=== PATIENT | female | born 1980 | race Caucasian/White ===

== ENCOUNTER 2019-03-18 20:38 | Emergency (ER) | payer BC, SELFPAY ==
--- NOTE | ~2019-03-18 | CT_ITS ---
EXAMINATION: CT abdomen pelvis w con DATE: 03/19/2019 00:54 INDICATION: Right lower quadrant abdominal pain. Nausea and diarrhea. TECHNIQUE: Computed tomography (CT) of the abdomen and pelvis was performed with 100 mL Omnipaque 350 intravenous contrast. Automated exposure control and iterative reconstruction technique were employe d. The dose-length product was 445.01 mGy-cm. COMPARISON: CT abdomen and pelvis 07/18/2017 FINDINGS: The visualized portions of the lung bases demonstrate mild atelectasis. No pleural effusion . The heart size is normal. No pericardial effusion. The liver, gallbladder, spleen, pancreas, adrena l glands, and kidneys are normal. There are no dilated loops of bowel. The appendix is normal. There are no pathologically enlarged lymph nodes. There is no free intraperitoneal fluid. The bones are unr emarkable. IMPRESSION: 1. No etiology for the patient's symptoms. Reviewed, dictated and finalized at location A. R PA[employer]ER
[2019-03-18 20:39] VITALS: BP 137/75; PULSE 103; RESP 16; TEMP 36.7; O2SAT 100
[2019-03-18 20:51] LABS: Basophils Absolute Auto 0.1 K/mm3 (0.0-0.1); Basophils Percent Auto 0.7 % (0.2-1.2); Eosinophils Absolute Auto 0.2 K/mm3 (0-0.3); Hematocrit 43.2 % (37.0-47.0); Hemoglobin 14.8 g/dL (12.0-15.0); Immature Granulocyte Absolute 0.02 K/mm3 (0.00-0.031); Immature Granulocyte Percent A 0.2 % (0-0.5); Lymphocytes Percent Auto 42.4 % (18.3-44.2); Mean Corpuscular HGB Conc 34.3 g/dl (32-36); Mean Corpuscular Hemoglobin 30.2 pg (26-34); Mean Corpuscular Volume 88.2 fl (80-100); Mean Platelet Volume 9.2 fl (7.4-10.4); Monocytes Absolute Auto 0.7 K/mm3 (0.1-0.6); Monocytes Percent Auto 6.4 % (2.6-8.5); Neutrophils Absolute Auto 4.9 K/mm3 (1.3-6.7); Neutrophils Percent Auto 48.3 % (45.5-73.1); Platelet Count Result 254 k/mm3 (150-375); Red Cell Distribution Width 12.3 % (11.5-14.5); White Blood Count 10.1 K/mm3 (4.5-10.0)
[2019-03-18 21:03] LABS: Blood Urea Nitrogen 16 mg/dL (7-17); Calcium 9.4 mg/dL (8.4-10.2); Carbon Dioxide 23 mmol/L (22-30); Chloride 102 mmol/L (98-107); Estimated Glomerular Filt Rate > 60; Glucose 116 mg/dL (65-105); Potassium 3.7 mmol/L (3.4-5.0); Sodium 137 mmol/L (137-145)
[2019-03-18 22:09] LABS: Add Urine Microscopic? YES; Appearance Urine Clear (Clear); Bacteria Urine Trace /hpf; Bilirubin Urine Negative (Negative); Blood Urine 1+ (Negative); Color Urine Yellow (Yellow); Glucose Urine UA Negative (Negative); Ketones Urine Negative (Negative); Leukocyte Esterase Ur Negative LEU/UL (Negative); Mucus Urine Rare /lpf; Nitrate Urine Negative (Negative); Protein Urine Negative (Negative); Specific Grav Ur 1.017 (1.001-1.035); Squamous Epithelial Cell Urine Many /hpf (Few); WBC Urine 0-3 /hpf
--- NOTE | 2019-03-18 23:17 | ED.ABDPAIN ---
HPI - Abdominal Pain General Chief Complaint: Abdominal Pain Stated Complaint: rlq pain Time Seen by Provider: 03/18/19 23:14 Source: patient and RN notes reviewed Mode of arrival: ambulatory Limitations: no limitations History of Present Illness HPI narrative: Pt is a 38 y/o female who presents to the ED with c/o worsening rt sided ABD pain starting 3-4 days ago. She notes that her pain is aggravated with eating and certain movements. Pt states that her pain radiates into her bilateral groin when it becomes aggravated. She notes that she recently got off of her period. Pt currently denies any vomiting, fever, or chills. She denies any Hx of appendectomy or cholecystectomy. MD elicited complaint: abdominal pain Onset (ago): day(s) (3-4) Pain Consistency: other (worsening) Location: other (rt side of ABD) Radiation: other (bilateral groin) Exacerbating factors: eating and movement Associated symptoms: denies other symptoms Related Data Allergies Allergy/AdvReac Type Severity Reaction Status Date / Time codeine Allergy Mild Rash Verified 03/18/19 23:53 Penicillins Allergy Unknown Rash Verified 08/14/18 17:48 Review of Systems Review of Systems: All systems reviewed & are unremarkable except as noted in HPI and below Constitutional: Constitutional: Denies chills and Denies fever(s) Gastrointestinal: Gastrointestinal: Reports abdominal pain (rt sided ABD pain radiating into bilateral groin) and Denies vomiting PMFSH Past Medical History Medical History Perthes disease Surgical History Surgical History History of hip surgery lt hip Social History Social History Smoking packs per day: 1 Smoking cigarettes per day: 20.0 Smoking status: Current every day smoker Comments PCP is JUANA Fairchild. Exam Narrative: Exam Narrative: General appearance: Well-developed, well-nourished, no family member at the bedside Skin: Normal color Head: Normocephalic, nontraumatic Eyes: Clear conjunctiva ENT: Oropharynx normal, ears normal, nose normal Neck: Supple, nontender Chest and respiratory: Airway patent, no respiratory distress, no accessory muscle use Heart: Regular rate/rhythm Abdomen: Soft, diffuse tenderness right upper quadrant, no organomegaly, quiet bowel sounds Vascular: Normal peripheral pulses, normal capillary refill. 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 Labs, CT abdomen and pelvis with IV contrast ordered. IV fluids, IV Dilaudid, IV Zofran ordered. Further plan to follow Differential Diagnosis Differential diagnosis: Likely abdominal pain, constipation, diverticulitis and other (Cholecystitis cholelithiasis) Lab Data Result diagrams: 03/18/19 20:45 03/18/19 20:45 Labs: Lab Results 03/18/19 03/18/19 03/18/19 Range/Units 20:45 20:45 21:49
[2019-03-18] MEDS: SODIUM CHLORIDE 0.9% IV 1,000 ML 999 ML IV CONT (23:48)
[2019-03-18] MEDS: MORPHINE SULFATE 4 MG/ML INJ IV PUSH (23:51)
[2019-03-18] MEDS: ONDANSETRON INJ 4 MG/2 ML VIAL IV PUSH (23:51)
[2019-03-19 02:01] VITALS: BP 128/72; PULSE 72; RESP 16; TEMP 36.5; O2SAT 99
== END 2019-03-19 02:10 | disposition home or self-care (01) ==
PROVIDERS: Emergency Medicine; Emergency Provider Emergency Medicine; PCP Nurse Practitioner Family
DX: R10.11 Right upper quadrant pain (principal); F17.210 Nicotine dependence, cigarettes, uncomplicated
CPT/HCPCS: 36415; 74177; 80048; 81001; 81025; 85025; 96361; 96374; 96375; 99284; J2270; J2405; J7030; Q9967

== ENCOUNTER 2019-04-02 17:34 | Emergency (ER) | payer BC, SELFPAY ==
--- NOTE | 2019-04-02 17:36 | ED.URI ---
HPI - URI/Sore Throat General Chief Complaint: Upper Respiratory Infection Stated Complaint: Cough Time Seen by Provider: 04/02/19 17:36 Source: patient and RN notes reviewed History of Present Illness HPI Narrative: Patient is a 38-year-old female presents the urgent care with complaints of a nonproductive cough, headache, chills, sweats. Patient states that started today and she has been exposed to both flu and strep. Patient has been using ibuprofen but otherwise nothing else [id number] for her symptoms. No other acute complaints. No acute distress noted. Patient read the plan of care. Related Data Home Medications Medication Instructions Recorded Confirmed escitalopram oxalate [Lexapro] 10 mg PO DAILY 04/02/19 04/02/19 Allergies Allergy/AdvReac Type Severity Reaction Status Date / Time codeine Allergy Mild Rash Verified 04/02/19 17:54 Penicillins Allergy Unknown Rash Verified 04/02/19 17:54 Review of Systems Review of Systems: Narrative: CONSTITUTIONAL: Reports of chills and sweats EYES: Denies visual changes, redness, or discharge. ENT: Denies rhinorrhea, congestion, sore throat, or otalgia. CARDIOVASCULAR: Denies chest pain, palpitations, or edema. RESPIRATORY: Reports of nonproductive cough without dyspnea GASTROINTESTINAL: Denies abdominal pain, nausea, vomiting, or diarrhea. GENITOURINARY: Denies dysuria or hematuria. SKIN: Denies rash or itching. MUSCULOSKELETAL: Denies back pain, joint pain, or myalgia. NEUROLOGIC: Reports of headache All other systems reviewed are negative, except as documented in HPI. PMFSH Social History Social History Smoking packs per day: 1 Smoking cigarettes per day: 20.0 Smoking status: Current every day smoker Gender identity (if verbalized by the patient): Female Comments At the time of my signature, I reviewed and agree with the nursing past medical, surgical, social, and family history. There is no relevant family history pertinent to the patient complaint. Exam Narrative: Exam Narrative: GENERAL: This is a well-nourished, well-developed patient, appears slightly fatigued HEAD: normocephalic, atraumatic. EYES: PERRL. Sclera clear/white. Vision is grossly intact. EARS: External ears normal, auditory canals clear and without drainage, TMs normal without perforation. Hearing grossly intact. NOSE: External nose normal with no obvious nasal discharge, nares without redness, no rhinorrhea. THROAT: Mucous membranes moist, posterior pharynx clear. Moderate postnasal drainage NECK: Neck supple, non-tender without lymphadenopathy CARDIOVASCULAR: Regular rate and rhythm without murmurs, gallops, or rubs. RESPIRATORY: Clear to auscultation. Breath sounds equal bilaterally. No wheezes, rales, or rhonchi. SKIN: warm, intact with no suspicious lesions or rash, good texture and turgor. NEURO: awake, alert, and oriented to person, place and time. There were no obvious focal neurologic abnormalities. EXTREMITIES: No clubbing, cyanosis, or edema. Course Vital Signs Vital signs: Vital Signs Temperature 98.6 F 04/02/19 17:44 Pulse Rate 77 04/02/19 17:44 Respiratory Rate 16 04/02/19 17:44 Blood Pressure 122/69 04/02/19 17:44 Pulse Oximetry 100 04/02/19 17:44 Temperature 98.6 F 04/02/19 17:44 Pulse Rate 77 04/02/19 17:44 Respiratory Rate 16 04/02/19 17:44 Blood Pressure 122/69 04/02/19 17:44 Pulse Oximetry 100 04/02/19 17:44 Reviewed MDM - URI/Sore Throat MDM Narrative Medical decision making narrative: Reviewed lab results with the patient. She is aware that strep swab was negative. Educated patient on culture we will call within 72 hours if culture is positive and antibiotics are necessary. Patient is also aware that her influenza swab that was negative for flu. Advised the patient to treat symptoms with [id number] medication such as Flonase and Claritin for postnasal drainage. U
[2019-04-02 17:44] VITALS: BP 122/69; PULSE 77; RESP 16; TEMP 37; O2SAT 100
== END 2019-04-02 18:12 | disposition home or self-care (01) ==
PROVIDERS: Emergency Provider Nurse Practitioner Family; PCP Nurse Practitioner Family
DX: B34.9 Viral infection, unspecified (principal); F17.200 Nicotine dependence, unspecified, uncomplicated
CPT/HCPCS: 87081; 87804; 87880; 99213; G0463

== ENCOUNTER 2020-02-21 20:46 | Emergency (ER) | payer BC, MEDICAID, SELFPAY ==
[2020-02-21 20:48] VITALS: BP 160/83; PULSE 89; RESP 17; TEMP 37; O2SAT 97
--- NOTE | 2020-02-21 21:26 | ED.GENADULT ---
HPI - General Adult General Chief complaint: GI Bleed Stated complaint: abd pain, black stools Time Seen by Provider: 02/21/20 20:54 Source: RN notes reviewed History of Present Illness HPI narrative: Patient presents emergency department from home for possible GI bleed. Patient states she is been having approximate 1-2 black stools a day since . She states she called her PCP today and was instructed to come to the ED for further evaluation she notes that with the symptoms she is having nausea as well as intermittent epigastric abdominal pain she also notes generalized fatigue as well as intermittent dizziness she denies any fevers or chills chest pain shortness of breath vomiting diarrhea or any other symptoms Related Data Home Medications Medication Instructions Recorded Confirmed norethindrone (contraceptive) mg 02/21/20 sertraline mg 02/21/20 Allergies Allergy/AdvReac Type Severity Reaction Status Date / Time codeine Allergy Mild Rash Verified 02/21/20 20:51 Penicillins Allergy Unknown Rash Verified 02/21/20 20:51 Review of Systems Review of Systems: Narrative: Gen.: Denies fevers or chills ENT: Denies congestion Respiratory: Denies shortness of breath or cough CV: Denies chest pain or palpitations GI: See HPI denies burning, urgency, frequency or hematuria Musculoskeletal: Denies back pain or muscle pain Neuro: Denies numbness, tingling, weakness or focal weakness reports intermittent dizziness Skin: Denies rash Except as documented, all other systems reviewed and negative [facility] Past Medical History Medical History (Updated 02/21/20 @ 23:18 by Dexter Mckay DO) Perthes disease Surgical History Surgical History History of hip surgery lt hip Social History Social History Smoking packs per day: 1 Smoking cigarettes per day: 20.0 Smoking status: Current every day smoker Gender identity (if verbalized by the patient): Female Exam Narrative: Exam Narrative: APPEARANCE: No acute distress, nontoxic, resting in bed EYES: EOMI HEENT: Normocephalic, atraumatic, OMM RESPIRATORY: No respiratory distress Clear to auscultation bilaterally with no rhonchi wheezing or rales. CARDIOVASCULAR: Regular rate and rhythm without murmurs rubs or gallops. ABDOMINAL: Soft, nontender, nondistended, no rebound or guarding Rectal: No hemorrhoids or fissures, small amount of soft dark brown stool that is Hemoccult negative MUSCULOSKELETAl: Moves all extremities. No clubbing, cyanosis or edema. NEURO: Awake and alert. Following commands, speech normal, no focal deficits SKIN:: Warm, dry. No rashes lesions or abrasions PSYCHIATRIC: Normal affect/mood, Course Course Emergency Course: Patient notes no complaints in ED. Repeat abdominal exam soft and nontender discussed with patient results of workup and diagnosis. Discussed need for follow-up with primary care, proper use of medication, and reasons to return to the emergency department. Patient understands and agrees to current treatment plan discussed follow-up with GI need for possible EGD Vital Signs Vital signs: Vital Signs Temperature 98.6 F 02/21/20 20:48 Pulse Rate 89 02/21/20 20:48 Respiratory Rate 17 02/21/20 20:48 Blood Pressure 160/83 H 02/21/20 20:48 Pulse Oximetry 97 02/21/20 20:48 Temperature 98.6 F 02/21/20 20:48 Pulse Rate 68 02/21/20 22:30 Respiratory Rate 16 02/21/20 22:30 Blood Pressure 133/78 02/21/20 22:30 Pulse Oximetry 98 02/21/20 22:30 Medical Decision Making MDM Narrative Medical decision making narrative: Patient presents for dark stools. Hemoccult negative in ED. Hemoglobin is stable and patient has had normal orthostatics. She has had intermittent epigastric pain I do suspect a possible ulcer. At this time I do feel the patient is safe for discharge her abdomen is currently
[2020-02-21 21:35] LABS: Basophils Absolute Auto 0.1 K/mm3 (0.0-0.1); Basophils Percent Auto 0.7 % (0.2-1.2); Eosinophils Absolute Auto 0.2 K/mm3 (0-0.3); Eosinophils Percent Auto 1.8 % (0-4.4); Hematocrit 45.2 % (37.0-47.0); Hemoglobin 15.8 g/dL (12.0-15.0); Immature Granulocyte Absolute 0.05 K/mm3 (0.00-0.031); Immature Granulocyte Percent A 0.5 % (0-0.5); Lymphocytes Absolute Auto 3.86 K/mm3 (0.9-3.2); Lymphocytes Percent Auto 35.6 % (18.3-44.2); Mean Corpuscular Hemoglobin 30.7 pg (26-34); Mean Corpuscular Volume 87.9 fl (80-100); Mean Platelet Volume 8.6 fl (7.4-10.4); Monocytes Absolute Auto 0.8 K/mm3 (0.1-0.6); Monocytes Percent Auto 7.4 % (2.6-8.5); Neutrophils Absolute Auto 5.8 K/mm3 (1.3-6.7); Platelet Count Result 268 k/mm3 (150-375); Red Blood Count 5.14 M/mm3 (4.2-5.4); Red Cell Distribution Width 12.6 % (11.5-14.5); White Blood Count 10.8 K/mm3 (4.5-10.0)
[2020-02-21 21:46] LABS: Partial Thromboplastin Time 26.8 SECONDS (22.3-36.8); Prothrombin Time 13.8 Seconds (11.1-14.7)
[2020-02-21 21:48] LABS: Alanine Aminotransferase 26 U/L (4-35); Albumin Level 4.2 g/dL (3.5-5.1); Alkaline Phosphatase 85 U/L (38-126); Anion Gap 7 mmol/L (8-16); Aspartate Amino Transferase 22 U/L (14-36); Bilirubin,Total 0.8 mg/dL (0.2-1.3); Blood Urea Nitrogen 12 mg/dL (7-17); Calcium 8.7 mg/dL (8.4-10.2); Carbon Dioxide 22 mmol/L (22-30); Chloride 107 mmol/L (98-107); Estimated Glomerular Filt Rate > 60; Glucose 89 mg/dL (65-105); Potassium 3.9 mmol/L (3.4-5.0); Sodium 136 mmol/L (137-145)
[2020-02-21 21:50] LABS: Add Urine Microscopic? YES; Appearance Urine Clear (Clear); Bacteria Urine Trace /hpf; Bilirubin Urine Negative (Negative); Blood Urine 2+ (Negative); Color Urine Straw (Yellow); Glucose Urine UA Negative (Negative); Ketones Urine Negative (Negative); Leukocyte Esterase Ur Trace LEU/UL (Negative); Nitrate Urine Negative (Negative); Protein Urine Negative (Negative); RBC Urine 0-2 /hpf (0-2); Specific Grav Ur 1.006 (1.001-1.035); Squamous Epithelial Cell Urine Many /hpf (Few); Urobilinogen Urine Negative mg/dL (<2.0); WBC Urine 0-3 /hpf
[2020-02-21 22:01] VITALS: BP 120/82; BP 133/78; BP 134/79; PULSE 62; PULSE 67; PULSE 74
[2020-02-21] MEDS: ONDANSETRON INJ 4 MG/2 ML VIAL IV PUSH (22:05)
[2020-02-21] MEDS: SODIUM CHLORIDE 0.9% IV 1,000 ML 999 ML IV CONT (22:06)
[2020-02-21] MEDS: PANTOPRAZOLE SODIUM IV 40 MG VIAL IV PUSH (22:06)
[2020-02-21 22:30] VITALS: BP 133/78; PULSE 68; RESP 16; O2SAT 98
[2020-02-21 23:50] VITALS: BP 139/78; PULSE 72; RESP 16; TEMP 36.3; O2SAT 95
== END 2020-02-21 23:54 | disposition home or self-care (01) ==
PROVIDERS: Emergency Provider Emergency Medicine; PCP Nurse Practitioner Family
DX: R10.13 Epigastric pain (principal); F17.210 Nicotine dependence, cigarettes, uncomplicated
CPT/HCPCS: 36415; 80053; 81001; 81025; 85025; 85610; 85730; 86850; 86900; 86901; 96361; 96374; 96375; 99284; C9113; J2405; J7030

== ENCOUNTER 2020-05-12 17:50 | Emergency (ER) | payer BC, MEDICAID, SELFPAY ==
--- NOTE | 2020-05-12 17:52 | ED.DENTAL ---
HPI - Dental/Oral General Chief complaint: Dental/Oral Stated complaint: Pain on tongue Time Seen by Provider: 05/12/20 17:52 Source: patient and RN notes reviewed History of Present Illness HPI Narrative: Patient is a 39-year-old female who presents the urgent care with complaints of possible thrush and painful tongue. Patient states she noticed it about a week ago and has been increasing her water intake and changing her toothbrushes. Patient states it seems to have gotten worse and feels like she is eating scolding hot foods or drinking scolding hot coffee every time she eats or drinks. Patient also reports of bilateral itchy ears . Call patient denies any other acute complaints. No acute distress noted. Patient aware of the plan of care. Some parts of this dictation were generated by voice recognition software and may contain typographical and/or grammatical inaccuracies. Related Data Home Medications Medication Instructions Recorded Confirmed norethindrone (contraceptive) mg 02/21/20 sertraline mg 02/21/20 Allergies Allergy/AdvReac Type Severity Reaction Status Date / Time codeine Allergy Mild Rash Verified 02/21/20 20:51 Penicillins Allergy Unknown Rash Verified 02/21/20 20:51 Review of Systems Review of Systems: Narrative: CONSTITUTIONAL: Denies fever, chills, or sweats. EYES: Denies visual changes, redness, or discharge. ENT: Denies rhinorrhea, congestion, sore throat. Reports of bilateral itchy ears and sore tongue CARDIOVASCULAR: Denies chest pain, palpitations, or edema. RESPIRATORY: Denies cough or dyspnea. GASTROINTESTINAL: Denies abdominal pain, nausea, vomiting, or diarrhea. GENITOURINARY: Denies dysuria or hematuria. SKIN: Denies rash or itching. MUSCULOSKELETAL: Denies back pain, joint pain, or myalgia. NEUROLOGIC: Denies headache, numbness, or weakness. All other systems reviewed are negative, except as documented in HPI. [facility] Past Medical History Medical History (Updated 05/12/20 @ 18:40 by KELLY Brown) Perthes disease Surgical History Surgical History History of hip surgery lt hip Social History Social History Smoking packs per day: 1 Smoking cigarettes per day: 20.0 Smoking status: Current every day smoker Gender identity (if verbalized by the patient): Female Comments At the time of my signature, I reviewed and agree with the nursing past medical, surgical, social, and family history. There is no relevant family history pertinent to the patient complaint. Exam Narrative: Exam Narrative: GENERAL: This is a well-nourished, well-developed patient, in no apparent distress. HEAD: normocephalic, atraumatic. EYES: PERRL. Sclera clear/white. Vision is grossly intact. EARS: External ears normal, auditory canals clear and without drainage, TMs normal without perforation. Hearing grossly intact. NOSE: External nose normal with no obvious nasal discharge, nares without redness, no rhinorrhea. THROAT: Mucous membranes moist, posterior pharynx clear. Coated white to yellow tongue with scattered raised blistering to the posterior tongue. NECK: Neck supple SKIN: warm, intact with no suspicious lesions or rash, good texture and turgor. NEURO: awake, alert, and oriented to person, place and time. There were no obvious focal neurologic abnormalities. EXTREMITIES: No clubbing, cyanosis, or edema. Course Vital Signs Vital signs: Vital Signs Temperature 97.7 F 05/12/20 18:06 Pulse Rate 83 05/12/20 18:06 Respiratory Rate 16 05/12/20 18:06 Blood Pressure 139/69 05/12/20 18:06 Pulse Oximetry 100 05/12/20 18:06 Temperature 97.7 F 05/12/20 18:06 Pulse Rate 83 05/12/20 18:06 Respiratory Rate 16 05/12/20 18:06 Blood Pressure 139/69 05/12/20 18:06 Pulse Oximetry 100 05/12/20 18:06 Reviewed MDM - Dental/Oral MDM Narrative Medical dec
[2020-05-12 18:06] VITALS: BP 139/69; PULSE 83; RESP 16; TEMP 36.5; O2SAT 100
== END 2020-05-12 18:42 | disposition home or self-care (01) ==
PROVIDERS: Emergency Provider Nurse Practitioner Family; PCP Nurse Practitioner Family
DX: B37.0 Candidal stomatitis (principal); F17.219 Nicotine dependence, cigarettes, with unspecified nicotine-induced disorders; M91.10 Juvenile osteochondrosis of head of femur [Legg-Calve-Perthes], unspecified leg
CPT/HCPCS: 99213; G0463

== ENCOUNTER 2020-05-16 12:38 | Emergency (ER) | payer BC, MEDICAID, SELFPAY ==
--- NOTE | 2020-05-16 12:49 | ED.UPPEXIN ---
HPI - Extremity Injury (Upper) General Chief Complaint: Upper Respiratory Infection Stated Complaint: Ear Pain,Congestion Time Seen by Provider: 05/16/20 12:49 Source: patient and RN notes reviewed Mode of arrival: ambulatory Limitations: no limitations History of Present Illness HPI narrative: 39 yo female presents [facility] the [facility] with C/O bilateral ear pain, Sinus congestion, ear itching for 4 days. Now having generalized head congestion and ear pressure. Patient denies fevers. No nausea vomiting or diarrhea. Denies any sick contacts. Related Data Home Medications Medication Instructions Recorded Confirmed norethindrone (contraceptive) mg 02/21/20 sertraline mg 02/21/20 Allergies Allergy/AdvReac Type Severity Reaction Status Date / Time codeine Allergy Mild Rash Verified 02/21/20 20:51 Penicillins Allergy Unknown Rash Verified 02/21/20 20:51 Review of Systems Review of Systems: Narrative: CONSTITUTIONAL: Denies fever, chills, or sweats. EYES: Denies visual changes, redness, or discharge. ENT: Reports rhinorrhea, congestion and otalgia. CARDIOVASCULAR: Denies chest pain, palpitations, or edema. RESPIRATORY: Denies cough or dyspnea. GASTROINTESTINAL: Denies abdominal pain, nausea, vomiting, or diarrhea. GENITOURINARY: Denies dysuria or hematuria. SKIN: Denies rash or itching. MUSCULOSKELETAL: Denies back pain, joint pain, or myalgia. NEUROLOGIC: Denies headache, numbness, or weakness. PSYCHIATRIC: Denies anxiety or depression. All other systems reviewed are negative, except as documented in HPI. [facility] Past Medical History Medical History (Updated 05/17/20 @ 14:50 by Mirna Garcia) Perthes disease Surgical History Surgical History History of hip surgery lt hip Social History Social History Smoking packs per day: 1 Smoking cigarettes per day: 20.0 Smoking status: Current every day smoker Gender identity (if verbalized by the patient): Female Comments At the time of my signature, I reviewed and agree with the nursing past medical, surgical, social, and family history. There is no relevant family history pertinent to the patient complaint. Exam Narrative: Exam Narrative: GENERAL: This is a well-nourished, well-developed patient, in no apparent distress. HEAD: normocephalic, atraumatic. EYES: PERRL. Sclera clear/white. Vision is grossly intact. EARS: External ears normal, auditory canals clear and without drainage, right TMs normal without perforation. Left TM bulging, red, tender on exam NOSE: External nose normal. nares injected with increased redness, + rhinorrhea. THROAT: Mucous membranes moist, posterior pharynx clear. NECK: Neck supple, non-tender without lymphadenopathy, masses or thyromegaly. CARDIOVASCULAR: Regular rate and rhythm without murmurs, gallops, or rubs. RESPIRATORY: Clear to auscultation. Breath sounds equal bilaterally. No wheezes, rales, or rhonchi. NEURO: awake, alert, and oriented to person, place and time. There were no obvious focal neurologic abnormalities. EXTREMITIES: No joint tenderness, effusion, or edema noted. BACK: Nontender without deformity. Course Course Emergency Course: Vital Signs Vital signs: Vital Signs Temperature 97.0 F L 05/16/20 12:54 Pulse Rate 73 05/16/20 12:54 Respiratory Rate 16 05/16/20 12:54 Blood Pressure 130/80 05/16/20 12:54 Pulse Oximetry 96 05/16/20 12:54 Temperature 97.0 F L 05/16/20 12:54 Pulse Rate 73 05/16/20 12:54 Respiratory Rate 16 05/16/20 12:54 Blood Pressure 130/80 05/16/20 12:54 Pulse Oximetry 96 05/16/20 12:54 Reviewed MDM - Extremity Injury (Upper) MDM Narrative Medical decision making narrative: Discussed with patient her findings on exam. Discussed treatment plan to include the antibiotics. Some home treatment. Discharge instructions reviewed with patient, as we
[2020-05-16 12:54] VITALS: BP 130/80; PULSE 73; RESP 16; TEMP 36.1; O2SAT 96
== END 2020-05-16 13:40 | disposition home or self-care (01) ==
PROVIDERS: Emergency Provider Nurse Practitioner; PCP Nurse Practitioner Family
DX: J30.9 Allergic rhinitis, unspecified (principal); H66.002 Acute suppurative otitis media without spontaneous rupture of ear drum, left ear; J01.40 Acute pansinusitis, unspecified; F17.210 Nicotine dependence, cigarettes, uncomplicated; M91.10 Juvenile osteochondrosis of head of femur [Legg-Calve-Perthes], unspecified leg
CPT/HCPCS: 99213; G0463

== ENCOUNTER 2021-08-20 08:16 | Emergency (ER) | payer OTHER, SELFPAY ==
--- NOTE | ~2021-08-20 | XR_ITS ---
EXAMINATION: XR chest 2V DATE: 08/20/2021 09:03 INDICATION: Cough TECHNIQUE: Frontal and lateral views of the chest are obtained COMPARISON: None available FINDINGS: The lungs are free of acute opacities. No pleural effusion or pneumothorax. The cardiomedia stinal silhouette is normal. The visualized bones and soft tissues are unremarkable. IMPRESSION: 1. No acute cardiopulmonary abnormality. Reviewed, dictated and finalized at location B.
--- NOTE | 2021-08-20 08:36 | ED.URI ---
HPI - URI/Sore Throat General Chief Complaint: Upper Respiratory Infection Stated Complaint: body aches/congestion/cough Time Seen by Provider: 08/20/21 08:37 History of Present Illness HPI Narrative: Yolette Cano is a 41 yo female with a PMH of PMDD [facility] of body aches a cough that is occasional but has a bad taste to it, itchy throat. She is taking DayQuil since yesterday has helped a little bit but does not stop all the symptoms. She took DayQuil today but was sent home by [employer] and told to see somebody before she can return to work She is somewhat emotional today about the loss of her ntflwq-um-onw last month and states she feels rundown Related Data Allergies Allergy/AdvReac Type Severity Reaction Status Date / Time codeine Allergy Mild Rash Verified 02/21/20 20:51 Penicillins Allergy Unknown Rash Verified 02/21/20 20:51 Review of Systems Review of Systems: CONSTITUTIONAL: Denies fever, chills, sweats. Body aches EYES: Denies visual changes, redness, discharge. ENT: Denies rhinorrhea, congestion, scratchy sore throat, bilateral occasional otalgia. CARDIOVASCULAR: Denies chest pain, palpitations, edema. RESPIRATORY: Denies dyspnea, wheezing, occasional cough GASTROINTESTINAL: Denies abdominal pain, nausea, vomiting, diarrhea. GENITOURINARY: Denies dysuria, hematuria, abnormal discharge SKIN: Denies rash or itching. NEUROLOGIC: Denies numbness, or focal weakness. PSYCHIATRIC: Denies anxiety or depression. [facility] Past Medical History Medical History Perthes disease PMDD (premenstrual dysphoric disorder) Surgical History Surgical History History of hip surgery lt hip Social History Social History Smoking packs per day: 1 Smoking cigarettes per day: 20.0 Smoking status: Current every day smoker Gender identity (if verbalized by the patient): Female Comments At time of signature, I agree with nursing past medical, surgical, social and family history. There is no relevant family history pertinent to the presenting complaint. Exam Narrative: GENERAL: This is a well-nourished, well-developed patient, in mild distress. HEAD: normocephalic, atraumatic. EYES: Sclera clear/white. Vision is grossly intact. EARS: External ears normal, auditory canals erythema and without drainage, TMs normal without perforation. Hearing grossly intact. NOSE: External nose normal without nasal discharge, nares without redness, no rhinorrhea. THROAT: Mucous membranes moist, posterior pharynx erythema NECK: Neck supple, non-tender CARDIOVASCULAR: Regular rate and rhythm without murmurs, gallops, or rubs. RESPIRATORY: Clear to auscultation. Breath sounds equal bilaterally. No wheezes, rales, or rhonchi. GASTROINTESTINAL: Not done SKIN: warm, intact with no suspicious lesions or rash, good texture and turgor. NEURO: awake, alert, and oriented to person, place and time. There were no obvious focal neurologic abnormalities. Steady gait EXTREMITIES: Normal range of motion. BACK: Nontender without deformity Course Course Emergency Course: Patient comes to [facility] with complaints of body aches scratchy throat just not generally feeling well with an occasional cough that has a bad taste Strep done-negative COVID done-positive Chest [id number] Symptomatic treatment of COVID Level of Care: Express Care Visit Vital Signs Vital signs: Vital Signs Temperature 97.9 F 08/20/21 08:39 Pulse Rate 75 08/20/21 08:39 Respiratory Rate 18 08/20/21 08:39 Blood Pressure 112/77 08/20/21 08:39 Pulse Oximetry 100 08/20/21 08:39 Oxygen Delivery Room Air 08/20/21 08:39 Temperature 97.9 F 08/20/21 08:39 Pulse Rate 75 08/20/21 08:39 Respiratory Rate 18 08/20/21 08:39 Blood Pressure 112/77 08/20/21 0
[2021-08-20 08:39] VITALS: BP 112/77; PULSE 75; RESP 18; TEMP 36.6; O2SAT 100
== END 2021-08-20 09:25 | disposition home or self-care (01) ==
PROVIDERS: Emergency Provider Nurse Practitioner; PCP Nurse Practitioner Family
DX: U07.1 COVID-19 (principal); M91.10 Juvenile osteochondrosis of head of femur [Legg-Calve-Perthes], unspecified leg
CPT/HCPCS: 71046; 87081; 87426; 87880; 99213; C9803; G0463

== ENCOUNTER 2022-07-13 02:23 | Day surgery (SDC) | payer OTHER, SELFPAY ==
[2022-06-21 14:18] VITALS: BMI 30.7
--- NOTE | 2022-07-12 15:49 | P.HP_ITS ---
History of Present Illness History of Present Illness Consent: Risks, benefits, and alternatives have been discussed and questions answered. Patient agrees to proceed with procedure. Chief complaint: GERD, change in bowel habits Narrative: Yolette Cano is a 41 year old female who was referred for EGD because of frequent heartburn which is thought to be due to acid reflux and also because of a change in bowel habits. She had in the past had mostly loose stools and now she tending to have constipation. now her bowel movements seem to vary back and forth between hard and loose. She also has pains in her abdomen that are somewhat generalized but more so in the right flank and sometimes the left flank. The pain will also radiate to her back. She admits that she does not eat a proper diet. She seldom eats breakfast she has lost few lb but she attr ibutes this to stress because of the loss of someone close. She denies dysphagia. Review of Systems Review of Systems: All systems reviewed & are unremarkable except as noted in HPI and below PMFSH Past Medical History Medical History Perthes disease PMDD (premenstrual dysphoric disorder) Surgical History Surgical History History of hip surgery lt hip Social History Social History Smoking packs per day: 0.5 Smoking cigarettes per day: 10.0 Smoking status: Current every day smoker Tobacco type: cigarettes Alcohol intake: current Alcohol use details: rarely Substance use: current Substance use type: marijuana Other substance usage details: daily Living arrangements: with family Gender identity (if verbalized by the patient): Female Spiritual care concerns: No Meds Home Medications and Allergies Home Medications Medication Instructions Recorded Confirmed Type drospirenone (contraceptive) 4 mg 4 mg PO DAILY 06/21/22 06/21/22 History (28) tablet (Slynd) omeprazole 40 mg capsule,delayed 40 mg PO DAILY 06/21/22 06/21/22 History release sertraline 100 mg tablet 100 mg PO DAILY 06/21/22 06/21/22 History Allergies Allergy/AdvReac Type Severity Reaction Status Date / Time codeine Allergy Mild Rash Verified 07/13/22 06:17 Penicillins Allergy Unknown Rash Verified 07/13/22 06:17 Exam Const: General: alert Orientation/consciousness: patient oriented x3 Resp: Auscultation: clear to auscultation bilaterally Cardio: Rhythm: regular rhythm GI: GI Palp: Yes Soft to palpation and No Tenderness to palpation present (GI) Neuro: General: patient oriented x3 Assessment and Plan Assessment and plan (1) GERD (gastroesophageal reflux disease): Code(s): K21.9 - Gastro-esophageal reflux disease without esophagitis Status: Acute Assessment and Plan: EGD with possible biopsy or dilatation or cautery. (2) Change in bowel habits: Code(s): R19.4 - Change in bowel habit Status: Acute Assessment and Plan: Colonoscopy with possible biopsy or polypectomy or cautery or injection of substances.
[2022-07-13 06:19] VITALS: BP 127/76; PULSE 63; RESP 18; TEMP 36; O2SAT 100
[2022-07-13] MEDS: LACTATED RINGERS 1,000 ML 150 ML IV CONT (06:31)
--- NOTE | 2022-07-13 07:20 | WPDANESEPPF ---
Anes - Initial Pre Proc Eval Procedure: Operation Date: 07/13/22 07:30 Proposed Procedures p Esophagogastroduodenoscopy & Colonoscopy - Jamil Donohue MD Date/Time: 07/13/22 07:20 Surgeon: Jamil Donohue MD Pre Op Diagnosis: GERD, change in bowel habits Patient Data Age: 41 Gender: F Height: 1.5 m Weight: 66.7 kg Last Vital Signs Temp 96.8 F L 07/13/22 06:19 Pulse 63 07/13/22 06:19 Resp 18 07/13/22 06:19 BP 127/76 07/13/22 06:19 Pulse Ox 100 07/13/22 06:19 O2 Del Method Room Air 07/13/22 06:19 Allergies Allergy/AdvReac Type Severity Reaction Status Date / Time codeine Allergy Mild Rash Verified 07/13/22 06:17 Penicillins Allergy Unknown Rash Verified 07/13/22 06:17 Home Medications Medication Instructions Recorded Confirmed Type drospirenone (contraceptive) 4 mg 4 mg PO DAILY 06/21/22 06/21/22 History (28) tablet (Slynd) omeprazole 40 mg capsule,delayed 40 mg PO DAILY 06/21/22 06/21/22 History release sertraline 100 mg tablet 100 mg PO DAILY 06/21/22 06/21/22 History Patient hx anesthesia problems: none Family hx anesthesia problems: none Results Review: All pre-operative results and documents have been reviewed as part of the pre-operative evaluation. [facility] Past Medical History Medical History Perthes disease PMDD (premenstrual dysphoric disorder) Surgical History Surgical History History of hip surgery lt hip Social History Social History Smoking packs per day: 0.5 Smoking cigarettes per day: 10.0 Smoking status: Current every day smoker Tobacco type: cigarettes Alcohol intake: current Alcohol use details: rarely Substance use: current Substance use type: marijuana Other substance usage details: daily Living arrangements: with family Gender identity (if verbalized by the patient): Female Spiritual care concerns: No Anes - Eval Final PreProcedure Day of Procedure 07/13/22 07:20 Patient weight: normal Heart: regular rate and rhythm Lungs: clear to auscultation Airway: Mallampati scale class II Neurological: alert and oriented Last oral intake: >/= 8 hours ASA classification: II Emergent: no Anesthetic plan: proceed Anesthesia type and monitoring: general GIVS and standard monitoring Results Review: All pre-operative results and documents have been reviewed as part of the pre-operative evaluation. Informed Consent: The patient's anesthetic plan and its attendant risks and benefits were discussed with the patient/family/POA. Questions were solicited and answers provided to the satisfaction of the patient/family/POA.
--- NOTE | 2022-07-13 07:45 | SUR.OPER ---
EGD started at 728. Ended at 736. Colonoscopy started at 744.
[2022-07-13 08:00] VITALS: BP 103/64; PULSE 69; RESP 27; O2SAT 99
[2022-07-13 08:10] VITALS: BP 124/71; PULSE 64; RESP 16; O2SAT 100
[2022-07-13 08:20] VITALS: BP 127/70; PULSE 62; RESP 29; O2SAT 100
== END 2022-07-13 08:29 | disposition home or self-care (01) ==
PROVIDERS: PCP Nurse Practitioner Family; Visit Provider Internal Medicine Gastroenterology
PROC: 0DJ08ZZ Inspection of Upper Intestinal Tract, Via Natural or Artificial Opening Endoscopic (ICD-10-PCS; CPT 43235; principal; 2022-07-13 07:30)
DX: R19.7 Diarrhea, unspecified (principal); K59.00 Constipation, unspecified; K64.8 Other hemorrhoids; K21.9 Gastro-esophageal reflux disease without esophagitis; M91.10 Juvenile osteochondrosis of head of femur [Legg-Calve-Perthes], unspecified leg; F17.210 Nicotine dependence, cigarettes, uncomplicated; F12.90 Cannabis use, unspecified, uncomplicated
CPT/HCPCS: 45378; 43239; 87081; 88305; J2001; J2704; J7120

== ENCOUNTER 2022-09-07 14:31 | Emergency (ER) | payer OTHER, SELFPAY ==
[2022-09-07 14:39] VITALS: BP 136/75; PULSE 51; RESP 20; TEMP 36.5; O2SAT 100
--- NOTE | 2022-09-07 14:57 | ED.EAR ---
HPI - Ear Problem General Chief complaint: Ear Stated complaint: Ears Irritation/Headache Time Seen by Provider: 09/07/22 15:03 Source: patient, RN notes reviewed and old records reviewed Mode of arrival: ambulatory Limitations: no limitations History of Present Illness HPI Narrative: 42 year old female who presents to [facility] with complaints of right ear pain, intermittent headaches and nausea for the past 2 days. Patient reports that she was out in the heat on Monday and she was nauseated and sweating a lot. Patient reports that she has increasingly been tired today and nauseated with her right ear pain increasing. states that she has been taking Ibuprofen for her symptoms. Patient denies any known fevers, chills or sweats denies any vomiting or diarrhea or any abdominal pain, denies any dizziness or extreme weakness. MD Complaint: ear pain and other (nausea and headache) Location: right ear Duration: constant Severity: moderate Discharge from ear: Reports no Treatment prior to arrival: other (ibuprofen) Related Data Home Medications Medication Instructions Recorded Confirmed sertraline 100 mg tablet 100 mg PO DAILY 06/21/22 09/07/22 drospirenone (contraceptive) 4 mg 1 tablet PO DAILY 09/07/22 09/07/22 (28) tablet (Slynd) Allergies Allergy/AdvReac Type Severity Reaction Status Date / Time codeine Allergy Mild Rash Verified 09/07/22 14:34 Penicillins Allergy Unknown Rash Verified 09/07/22 14:34 Review of Systems Review of Systems: CONSTITUTIONAL: Denies malaise, chills, sweats, or fever. EYES: Denies visual changes, redness, or discharge. ENT: Reports rhinorrhea, congestion,no sinus pain, right otalgia, no sore throat. CARDIOVASCULAR: Denies chest pain, palpitations, or edema. RESPIRATORY: Reports no cough.? Denies dyspnea. GASTROINTESTINAL: Denies abdominal pain, positive for nausea, no vomiting, diarrhea SKIN: Denies rash or itching. MUSCULOSKELETAL: Denies myalgia. NEUROLOGIC:Reports headache. All systems reviewed & are unremarkable except as noted in HPI and below PMFSH Past Medical History Medical History Anxiety and depression Perthes disease PMDD (premenstrual dysphoric disorder) Surgical History Surgical History History of hip surgery lt hip Social History Social History Smoking packs per day: 0.5 Smoking cigarettes per day: 10.0 Smoking status: Current every day smoker Tobacco type: cigarettes Alcohol intake: current Alcohol use details: rarely Substance use: current Substance use type: marijuana Other substance usage details: daily Living arrangements: with family Gender identity (if verbalized by the patient): Female Spiritual care concerns: No Comments At time of signature, agree with nursing past medical, surgical, social and family history. There is no relevant family history pertinent to the presenting complaint Exam Narrative: GENERAL: Well-appearing, well-nourished, and in no acute distress. HEAD: Normocephalic EYES: PERRLA, conjunctivae clear, no nystagmus ENT: Nares clear, turbinates edematous and erythematous, clear discharge. Mucous membranes moist. TM pearly starr with dull light reflex bilaterally; right tragal tenderness, irritation of canal with redness. no drainage noted. Oropharynx erythematous without lesions. Tonsils not enlarged and without exudate, no drooling, no hoarseness, no trismus, uvula midline NECK: Supple. No lymphadenopathy CHEST: Clear to auscultation, breath sounds equal. No wheezing, rhonchi, rales, or stridor. No respiratory distress, speaks in full sentences.no cough SAO2 100% on room air HEART: Regular rate and rhythm. No murmur heard. SKIN: Warm, dry, no rash. NEURO: Alert and oriented x3.gait steady PSYCH: Normal mood a
== END 2022-09-07 15:15 | disposition home or self-care (01) ==
PROVIDERS: Emergency Provider Registered Nurse; PCP Nurse Practitioner Family
DX: J06.9 Acute upper respiratory infection, unspecified (principal); H60.311 Diffuse otitis externa, right ear; F17.210 Nicotine dependence, cigarettes, uncomplicated; F12.90 Cannabis use, unspecified, uncomplicated; F41.9 Anxiety disorder, unspecified; F32.A Depression, unspecified
CPT/HCPCS: 99213; G0463